=== PATIENT | female | born 1945 | race Caucasian/White ===

== ENCOUNTER 2019-09-13 21:11 | Inpatient (IN) ==
[2019-09-13] MEDS ORDERED: Isovue-370 500 ML BOTTLE IVP ONE (21:52)
[2019-09-13 22:49] LABS: Basophils # 0.1 K/mcL (0.0-0.2); Basophils % 0.7 %; Eosinophils # 0.2 K/mcL (0.0-0.6); Eosinophils % 2.8 %; Hematocrit 43.2 % (35.3-44.9); Hemoglobin 14.6 g/dL (11.5-15.4); Immature Granulocytes % 0.3 % (0-4); Lymphocytes # 2.4 K/mcL (0.6-4.6); Lymphocytes % 33.9 %; Mean Corpuscular HGB Conc 33.8 g/dL (31.6-35.5); Mean Corpuscular Hemoglobin 31.7 pg (28.0-33.3); Mean Corpuscular Volume 93.9 fL (83.0-100.0); Mean Platelet Volume 10.6 fL (9.4-12.4); Monocytes # 0.5 K/mcL (0.0-1.3); Monocytes % 7.1 %; Neutrophils # 3.9 K/mcL (1.6-8.9); Platelet Count 150 K/mcL (140-400); Red Cell Distribution Width 12.7 % (11.5-14.5); Segmented Neutrophils % 55.2 %; White Blood Count 7.1 K/mcL (4.3-11.1)
[2019-09-13 22:50] LABS: INR 1.1
[2019-09-13 22:53] LABS: Activated Partial Thrombo Time 32.8 Seconds (26.0-36.0)
[2019-09-13] MEDS ORDERED: Aspirin 81 MG TAB.CHEW PO ONE (22:53)
[2019-09-13 23:32] LABS: BUN/Creatinine Ratio 14 (6-26); Blood Urea Nitrogen 16 mg/dL (8-23); Calcium 9.2 mg/dL (8.6-10.3); Carbon Dioxide 23 mEq/L (23-29); Chloride 108 mEq/L (98-107); Creatine Kinase 110 Units/L (30-223); Glucose 128 mg/dL (70-105); Osmolality,Calculated 293 (280-300); Potassium 3.6 mEq/L (3.5-5.1); Sodium 140 mEq/L (136-145); Troponin I < 0.03 ng/mL (< 0.04); eGFR For African Americans 56 (> 60); eGFR For Non-African Americans 47 (> 60)
[2019-09-14] MEDS ORDERED: *HR* Heparin 5,000 UNIT/ML VIAL IVP ONE (00:18)
[2019-09-14] MEDS ORDERED: Heparin 25,000 UNIT/250 ML D5W 25,000 UNIT/250 ML IV.SOLN IVC SCH (00:30)
[2019-09-14] MEDS ORDERED: Metoprolol 100 MG TABLET PO ONE (01:22)
[2019-09-14] MEDS ORDERED: *HR* HYDROcodone/Acet 5/325 mg TABLET PO PRN (04:16)
[2019-09-14] MEDS ORDERED: Naloxone 0.4 MG/ML INJ IVP PRN (04:16)
[2019-09-14] MEDS ORDERED: Mag Hydrox/Al Hydrox/Simeth 30 ML UDC PO PRN (04:16)
[2019-09-14] MEDS ORDERED: Acetaminophen 325 MG TABLET PO PRN (04:16)
[2019-09-14] MEDS ORDERED: *HR* Promethazine 25 MG/ML VIAL IVP PRN (04:16)
[2019-09-14] MEDS ORDERED: Nitroglycerin 0.4 MG TAB.SUBL SL PRN (06:00)
[2019-09-14] MEDS ORDERED: Regadenoson 0.4 MG/5 ML SYRINGE IVP ONE (06:25)
[2019-09-14 06:40] LABS: Troponin I < 0.03 ng/mL (< 0.04)
[2019-09-14 06:49] LABS: Thyroid Stimulating Hormone 3.112 mcIU/mL (0.340-5.600)
[2019-09-14] MEDS: Isosorbide MONOnitrate (24 HR) 60 MG TAB.ER.24H PO SCH (08:34)
[2019-09-14] MEDS: amLODIPine 5 MG TABLET PO SCH (08:34)
[2019-09-14] MEDS: cilostazoL 100 MG TABLET PO SCH ×2 (08:34→17:11)
[2019-09-14] MEDS: Metoprolol 100 MG TABLET PO SCH ×2 (08:34→21:58)
[2019-09-14 19:41] LABS: Heparin anti-factor XA UFH 0.28 IU/mL (0.30-0.70)
[2019-09-14] MEDS ORDERED: NON-FORMULARY MEDICATION 1 EACH EACH (Ezetimibe [Zetia] 10 MG) PO SCH (21:00)
[2019-09-14] MEDS ORDERED: Aspirin 81 MG TAB.CHEW PO SCH (21:00)
[2019-09-14] MEDS ORDERED: *HR* Heparin 5,000 UNIT/ML VIAL IVP PRN ×2 (21:26)
[2019-09-14 21:37] LABS: INR 1.1; Prothrombin Time 12.9 Seconds (9.4-12.1)
[2019-09-15 05:18] LABS: Hematocrit 41.1 % (35.3-44.9); Hemoglobin 14.1 g/dL (11.5-15.4); Mean Corpuscular HGB Conc 34.3 g/dL (31.6-35.5); Mean Corpuscular Hemoglobin 32.1 pg (28.0-33.3); Mean Corpuscular Volume 93.6 fL (83.0-100.0); Mean Platelet Volume 10.7 fL (9.4-12.4); Platelet Count 146 K/mcL (140-400); Red Blood Count 4.39 M/mcL (3.82-4.97); Red Cell Distribution Width 12.6 % (11.5-14.5); White Blood Count 7.2 K/mcL (4.3-11.1)
[2019-09-15 05:38] LABS: Albumin 3.4 g/dL (3.5-5.7); Albumin/Globulin Ratio 1.5 (1.1-2.2); Bilirubin,Total 0.4 mg/dL (0.3-1.0); Calcium 9.2 mg/dL (8.6-10.3); Chol/HDL Ratio 3.8 (0-4.9); Globulin 2.3 g/dL (2.4-3.5); Magnesium 1.9 mg/dL (1.6-2.6); Potassium 3.6 mEq/L (3.5-5.1); Total Protein 5.7 g/dL (6.4-8.9)
[2019-09-15] MEDS ORDERED: Regadenoson 0.4 MG/5 ML SYRINGE IVP ONE (06:22)
[2019-09-15] MEDS: cilostazoL 100 MG TABLET PO SCH (08:51)
[2019-09-15] MEDS: amLODIPine 5 MG TABLET PO SCH (08:51)
[2019-09-15] MEDS: Isosorbide MONOnitrate (24 HR) 60 MG TAB.ER.24H PO SCH (08:51)
[2019-09-15] MEDS: Metoprolol 100 MG TABLET PO SCH (08:51)
[2019-09-15 10:44] VITALS: BP 127/64
== END 2019-09-15 13:16 | disposition home or self-care (01) | DRG 301 ==
LOC: EMEROOARM 21:11 → 2ANU 21:11
PROVIDERS: ADMIT Family Medicine; ATTEND Family Medicine

== ENCOUNTER 2020-09-20 10:22 | Inpatient (IN) ==
[2020-09-20] MEDS ORDERED: Protamine Sulfate 50 MG/5 ML VIAL IVP ONE (10:36)
[2020-09-20] MEDS ORDERED: Bupivacaine-MPF 0.25% 10 ML VIAL ONE (10:36)
[2020-09-20] MEDS ORDERED: Heparin 1,000 UNITS/500 mL 500 ML ONE ×2 (10:37→10:48)
[2020-09-20] MEDS ORDERED: *HR* Midazolam HCl 2 MG/2 ML VIAL ONE (10:37)
[2020-09-20] MEDS ORDERED: *HR* FentaNYL (PF) 100 MCG/2 ML VIAL ONE ×2 (10:37→13:17)
[2020-09-20] MEDS ORDERED: *HR* Propofol 200 MG/20 ML VIAL IVP ONE (10:37)
[2020-09-20] MEDS ORDERED: Lidocaine -MPF 2% 2 ML VIAL ONE ×2 (10:38→12:09)
[2020-09-20] MEDS ORDERED: *HR* Rocuronium Bromide 50 MG/5 ML VIAL ONE (10:38)
[2020-09-20] MEDS ORDERED: Lidocaine HCL 4 ML Topical Solution (Laryng-O-Jet Kit Sterile Pak) TP ONE (10:38)
[2020-09-20] MEDS ORDERED: Ondansetron 4 MG/2 ML VIAL ONE (10:38)
[2020-09-20] MEDS ORDERED: *HR* Phenylephrine 10 MG/ML VIAL ONE (10:43)
[2020-09-20] MEDS ORDERED: Vancomycin 1,250 MG/262.5 ML IV.SOLN IVPB ONE (10:46)
[2020-09-20] MEDS ORDERED: CeFAZolin Syr 2,000MG/20 ML 2,000 MG/20 ML SYRINGE IVPB ONE (10:46)
[2020-09-20] MEDS ORDERED: EPHEDrine 50 MG/ML VIAL ONE (10:47)
[2020-09-20] MEDS ORDERED: Acetaminophen IV 1,000 MG/100 ML BAG IVPB ONE (10:58)
[2020-09-20] MEDS ORDERED: Ondansetron 4 MG/2 ML VIAL IVP PRN ×2 (10:59→16:37)
[2020-09-20] MEDS ORDERED: *HR* HYDROmorphone PF 0.5 MG/0.5 ML SYRINGE IVP PRN (10:59)
[2020-09-20] MEDS ORDERED: Ringers Solution, Lactated 1,000 ML IVC SCH (11:00)
[2020-09-20] MEDS ORDERED: Vancomycin 1,000 MG, Sodium Chloride IRRigation 1,000 ML IR ONE (12:00)
[2020-09-20] MEDS ORDERED: *HR* Etomidate 40 MG/20 ML VIAL IVP ONE (12:16)
[2020-09-20] MEDS ORDERED: Vancomycin 1,000 MG VIAL ONE (12:48)
[2020-09-20] MEDS ORDERED: *HR* Heparin 5,000 UNIT/ML VIAL ONE (13:27)
[2020-09-20] MEDS ORDERED: *HR* HYDROMORPHONE 2 MG/ML VIAL ONE (13:35)
[2020-09-20] MEDS ORDERED: Sugammadex Sodium 200 MG/2 ML VIAL IV ONE (14:09)
[2020-09-20] MEDS ORDERED: Nitroglycerin 0.4 MG TAB.SUBL SL PRN (16:37)
[2020-09-20] MEDS ORDERED: 0.9 % Sodium Chloride 1,000 ML IVC SCH ×2 (16:37→17:23)
[2020-09-20] MEDS ORDERED: Acetaminophen 325 MG TABLET PO PRN (16:37)
[2020-09-20] MEDS ORDERED: Naloxone 0.4 MG/ML INJ IVP PRN (16:37)
[2020-09-20] MEDS ORDERED: *HR* HYDROcodone/Acet 5/325 mg TABLET PO PRN (16:37)
[2020-09-20] MEDS ORDERED: *HR* Labetalol 20 MG/4 ML SYRINGE IVP PRN (16:37)
[2020-09-20] MEDS ORDERED: *HR* OxyCODONE Immed Rel 5 MG TABLET PO PRN ×2 (16:37)
[2020-09-20] MEDS ORDERED: 0.9 % Sodium Chloride 500 ML ONE (16:55)
[2020-09-20] MEDS: *HR* Metoprolol 5 MG/5 ML VIAL IVP SCH ×2 (19:22→23:07)
[2020-09-20] MEDS: 0.9 % Sodium Chloride 500 ML IV ONE ×2 (19:23→21:01)
[2020-09-20] MEDS: CeFAZolin 2 GM/120 ML BAG IVPB SCH (19:43)
[2020-09-20] MEDS ORDERED: 0.9 % Sodium Chloride 500 ML IVC ONE (19:51)
[2020-09-20] MEDS ORDERED: Melatonin 3 MG TABLET PO SCH (21:00)
[2020-09-20] MEDS ORDERED: Aspirin 81 MG TAB.CHEW PO SCH (21:00)
[2020-09-21] MEDS: *HR* Metoprolol 5 MG/5 ML VIAL IVP SCH (03:38)
[2020-09-21 04:48] LABS: Basophils % 0.1 %; Hemoglobin 9.8 g/dL (11.5-15.4); Immature Granulocytes % 0.3 % (0-4); Lymphocytes # 0.7 K/mcL (0.6-4.6); Lymphocytes % 5.7 %; Mean Corpuscular HGB Conc 32.7 g/dL (31.6-35.5); Mean Corpuscular Hemoglobin 32.8 pg (28.0-33.3); Mean Corpuscular Volume 100.3 fL (83.0-100.0); Mean Platelet Volume 10.8 fL (9.4-12.4); Monocytes # 0.4 K/mcL (0.0-1.3); Monocytes % 3.1 %; Neutrophils # 10.8 K/mcL (1.6-8.9); Platelet Count 134 K/mcL (140-400); Red Blood Count 2.99 M/mcL (3.82-4.97); Red Cell Distribution Width 12.8 % (11.5-14.5); Segmented Neutrophils % 90.8 %; White Blood Count 11.9 K/mcL (4.3-11.1)
[2020-09-21] MEDS: CeFAZolin 2 GM/120 ML BAG IVPB SCH (04:48)
[2020-09-21] MEDS: Acetaminophen 325 MG TABLET PO PRN ×2 (04:53→12:27)
[2020-09-21 04:56] LABS: BUN/Creatinine Ratio 18 (6-26); Blood Urea Nitrogen 17 mg/dL (8-23); Calcium 7.6 mg/dL (8.6-10.3); Carbon Dioxide 21 mEq/L (23-29); Chloride 111 mEq/L (98-107); Glucose 144 mg/dL (70-105); Osmolality,Calculated 292 (280-300); Potassium 4.8 mEq/L (3.5-5.1); Sodium 139 mEq/L (136-145); eGFR For African Americans > 60 (> 60); eGFR For Non-African Americans 57 (> 60)
[2020-09-21] MEDS ORDERED: *HR* Heparin 5,000 UNIT/ML VIAL SQ SCH ×2 (06:00)
[2020-09-21] MEDS ORDERED: OLMESARTAN MEDOXOMIL 40 MG PO SCH (09:00)
[2020-09-21] MEDS ORDERED: Metoprolol 100 MG TABLET PO SCH (09:00)
[2020-09-21] MEDS ORDERED: hydroCHLOROthiazide 25 MG TABLET PO SCH (09:00)
[2020-09-21] MEDS ORDERED: (Ezetimibe [Zetia] 10 MG Tablet) PO SCH (09:00)
[2020-09-21] MEDS ORDERED: Isosorbide MONOnitrate (24 HR) 60 MG TAB.ER.24H PO SCH (09:00)
[2020-09-21] MEDS ORDERED: HYDROCHLOROTHIAZIDE 12.5 MG PO SCH (09:00)
[2020-09-21 10:35] VITALS: O2SAT 98
[2020-09-21 16:23] VITALS: BP 114/58; PULSE 76; TEMP 98.3
== END 2020-09-21 18:42 | disposition home or self-care (01) | DRG 253 ==
LOC: 2NNU 10:22 → SAMDAY 10:22 → 2NNU 10:30 → SAMDAY 09-21 18:42 → 2NNU 09-27 12:56
PROVIDERS: ADMIT Surgery; ATTEND Surgery